=== PATIENT | male | born 1990 | race Hispanic/Latino ===

== ENCOUNTER 2018-03-21 14:05 | Emergency (ER) | payer BC ==
[2018-03-21 14:14] VITALS: BMI 27.2
[2018-03-21] MEDS ORDERED: TDAP Vaccine 0.5 mL Syr IM ONE (14:51)
--- NOTE | 2018-03-21 14:58 | ED PDOC ---
Arrival/HPI - General Chief Complaint: Abnormal Skin Integrity Time Seen by Provider: 03/21/18 14:51 Historian: Patient - History of Present Illness Narrative History of Present Illness (Text): 03/21/18 14:53 27yo male with no PMhx who present with complaint of laceration to her right 3rd and 4th fingers x minutes [employer]. Patient states he accidentally cut his fingers with a Saw, while saw a wood. He is not up to date with his TD booster. He reports FROM of fingers. Denies focal weakness. Past Medical History - Provider Review Nursing Documentation Reviewed: Yes - Infectious Disease Hx of Infectious Diseases: None - Psychiatric Hx Substance Use: No - Surgical History Hx Orthopedic Surgery: Yes (Left Knee) Family/Social History - Physician Review Nursing Documentation Reviewed: Yes Family/Social History: Unknown Family HX Smoking Status: Never Smoked Hx Alcohol Use: No Hx Substance Use: No Allergies/Home Meds Allergies/Adverse Reactions: Allergies No Known Allergies Allergy (Verified 03/21/18 14:14) Review of Systems - Physician Review All systems were reviewed & negative as marked: Yes - Review of Systems Constitutional: Normal Eyes: Normal ENT: Normal Respiratory: Normal Cardiovascular: Normal Gastrointestinal: Normal Genitourinary Male: Normal Musculoskeletal: Normal Skin: Laceration (Right 3rd and 4th fingers) Neurological: Normal Endocrine: Normal Hemo/Lymphatic: Normal Psychiatric: Normal Physical Exam Vital Signs Reviewed: Yes Vital Signs Temp Pulse Resp BP Pulse Ox 03/21/18 16:20 98 F 75 18 153/86 H 98 03/21/18 15:17 98.0 F 75 18 153/86 H 99 03/21/18 14:18 98.1 F 80 20 162/92 H 97 Temperature: Afebrile Blood Pressure: Normal Pulse: Regular Respiratory Rate: Normal Appearance: Positive for: Well-Appearing, Non-Toxic, Comfortable Pain Distress: None Mental Status: Positive for: Alert and Oriented X 3 - Systems Exam Head: Present: Atraumatic, Normocephalic Pupils: Present: PERRL Extroacular Muscles: Present: EOMI Conjunctiva: Present: Normal Mouth: Present: Moist Mucous Membranes Neck: Present: Normal Range of Motion Respiratory/Chest: Present: Clear to Auscultation, Good Air Exchange. No: Respiratory Distress, Accessory Muscle Use Cardiovascular: Present: Regular Rate and Rhythm, Normal S1, S2. No: Murmurs Abdomen: No: Tenderness, Distention, Peritoneal Signs Back: Present: Normal Inspection Upper Extremity: Present: Normal Inspection. No: Cyanosis, Edema Lower Extremity: Present: Normal Inspection. No: Edema Neurological: Present: GCS=15, CN II-XII Intact, Speech Normal Skin: Present: Warm, Dry, Normal Color, Laceration (Approximately 2.0cm linear laceration on 3rd finger tip and 2.0cm linear 2 parallel laceration with partial avulsed skin on the tip of the 4th finger). No: Rashes Psychiatric: Present: Alert, Oriented x 3, Normal Insight, Normal Concentration Medical Decision Making ED Course and Treatment: 03/22/18 01:40 Laceration was irrigated with NS and approximated with #5 nylon. Bacitracine applied and dressed. PT was NVI. He had FROM. He was placed on prophylactic abx and was strongly advised to f/u with hand specialist or return to ED in 2days for wound check. He expressed understanding of the given instructions. - Medication Orders Current Medication Orders: Discontinued Medications Cephalexin Monohydrate (Keflex) 500 mg PO STAT STA PRN Reason: Protocol Stop: 03/21/18 14:52 Last Admin: 03/21/18 16:00 Dose: 500 mg Tetanus/Reduced Diphtheria/Acell Pertussis (Boostrix Vaccine Inj) 0.5 ml IM .ONCE ONE Stop: 03/21/18 14:52 Last Admin: 03/21/18 16:00 Dose: 0.5 ml Immunization Registry Document 03/21/18 16:00 EQ (Rec: 03/21/18 16:00 EQ [id number]) Immunization Registry Consent Date 03/21/18 Tramadol HCl (Ultram) 50 mg PO STAT STA Stop: 03/21/18 14:52 Last Admin: 03/21/18 15:59 Dose: 50 mg MAR Pain Assessment Document 03/21/18 15:59 EQ (Rec: 03/21/18 15:59 EQ [id number]) Pain Reassessment Is this a pain reassessment? No Sleep Is patient sleeping during reassessment? No Presence of Pain Presence of Pain Yes Procedure: Wound Repair - Consent Obtained Consent obtained: Verbal - Performed by Performed by: Mid-level Provider - Indications Indication(s):: Laceration - Location Finger:: Right, Middle, Ring Shape:: Linear, Other (Jagged edge) Dimensions Length cm: 2.0 and 2.0cm (2 parellel jagged edge) - Anesthetic Technique Anesthetic Technique: Local Local/Regional Anesthetic:: Lidocaine 1% (10ml) - Debris Debris:: None - Irrigated Irrigated with ml of normal saline: 50 - Complexity Complexity:: Complex (3 layer) - Muscle repiar layer closed with Muscle repair layer closed with:: # (6 and 11), Size, Type (Nylon), Technique ( Interrupted), Wound well approximated, Abx ointment applied, Dressing applied, Tetanus ordered - Patient tolerated procedure Patient Tolerated Procedure:: Well Disposition/Present on Arrival - Present on Arrival Any Indicators Present on Arrival: No History of DVT/PE: No History of Uncontrolled Diabetes: No Urinary Catheter: No History of Decub. Ulcer: No History Surgical Site Infection Following: None - Disposition Have Diagnosis and Disposition been Completed?: Yes Diagnosis: Finger laceration Disposition: HOME/ ROUTINE Disposition Time: 15:30 Patient Plan: Discharge Condition: STABLE Discharge Instructions (ExitCare): Laceration Repair, Laceration Repair With Stitches (DC) Additional Instructions: Keep wound clean and dry Follow up with your PMD/Hand specialist in 2days for evaluation Return to ED for redness, discharge. fever, any other complaint. Prescriptions: Cephalexin [Keflex] 500 mg PO QID #28 capsule traMADol [Ultram] 50 mg PO TID #10 tab Referrals: Claudia Farrell MD [Staff Provider] - Follow up with primary Forms: [employer] (Serbian)
[2018-03-21] MEDS ORDERED: Lidocaine 1% Inj (20ml) ONE (15:06)
[2018-03-21 15:18] VITALS: BP 153/86; PULSE 75; RESP 18
[2018-03-21 16:51] VITALS: TEMP 98; O2SAT 98
== END 2018-03-21 16:30 | disposition home or self-care (01) ==
LOC: ED 14:05
DX: S61.212A Laceration without foreign body of right middle finger without damage to nail, initial encounter (principal); S61.215A Laceration without foreign body of left ring finger without damage to nail, initial encounter; W27.8XXA Contact with other nonpowered hand tool, initial encounter; Z23 Encounter for immunization